=== PATIENT | male | born 1940 | race Caucasian/White ===

== ENCOUNTER 2020-03-20 09:32 | Outpatient (CLI) | payer OTHER, SELFPAY ==
--- NOTE | 2020-03-20 09:30 | USCV_ITS ---
Peter Royal Age: 79 Gender: M : 1940 Exam Date: 03/20/2020 09:52 Ordering Phys: Peewee Rivers MD ([email or web address]) Technologist: Ruchi Kendall [place] [facility] [place]: ventricular arrhythmia BP: 130 / 70 HR: 61 Rhythm: Sinus Technical Quality: Adequate MEASUREMENTS (Male / Female) Normal Values 2D ECHO LV Diastolic Diameter PLAX 4.9 cm 4.2 - 5.9 / 3.9 - 5.3 cm LV Systolic Diameter PLAX 3.8 cm LV Chamber Size 4.1 cm IVS Diastolic Thickness 1.6 cm 0.6 - 1.0 / 0.6 - 0.9 cm IVS Systolic Thickness 1.8 cm LVPW Diastolic Thickness 1.8 cm 0.6 - 1.0 / 0.6 - 0.9 cm LVPW Systolic Thickness 1.8 cm RV Chamber Size 4.4 cm LVOT Diameter 2.0 cm LV Ejection Fraction 2D Teich 44.8 % LV Ejection Fraction MOD 2C 35.9 % LV Ejection Fraction 2C AL 37.6 % LA Diameter 4.2 cm LA Width 3.2 cm LA Height 4.9 cm RA Width 3.1 cm RA Height 4.6 cm Aorta at Sinotubular Diameter 3.0 cm M-MODE LV Diastolic Diameter MM 6.5 cm 4.2 - 5.9 / 3.9 - 5.3 cm LV Systolic Diameter MM 4.6 cm LV Ejection Fraction MM Teich 54.8 % IVS Diastolic Thickness MM 1.0 cm 0.6 - 1.0 / 0.6 - 0.9 cm IVS Systolic Thickness MM 1.6 cm LVPW Diastolic Thickness MM 1.4 cm 0.6 - 1.0 / 0.6 - 0.9 cm LVPW Systolic Thickness MM 2.0 cm RV Diastolic Diameter MM 1.8 cm Aortic Annulus Diameter 4.1 cm LA Ao Ratio MM 1.0 MV E Point Septal Separation 0.6 cm DOPPLER AV Peak Velocity 163.7 cm/s LVOT Peak Velocity 85.7 cm/s AV Area Cont Eq vti 1.9 cm squared AV Area Cont Eq pk 1.6 cm squared MV Area PHT 4.0 cm squared Mitral E to A Ratio 1.0 MV E' Velocity 56.5 cm/s Mitral E to MV E' Ratio 12.1 Mitral E to LV E' Lateral Ratio 10.3 Mitral E to LV E' Septal Ratio 14.9 TR Peak Velocity 135.0 cm/s TR Peak Gradient 7.3 mmHg TR Mean Velocity 88.3 cm/s TR Mean Gradient 3.6 mmHg TR Velocity Time Integral 32.7 cm TV Peak E Velocity 59.0 cm/s Right Atrial Pressure 3.0 mmHg Pulmonary Artery Systolic Pressu 10.3 mmHg PV Peak Velocity 59.0 cm/s RV Acceleration Time 0.1 s RV Ejection Time 0.4 s RV AcT/ET 0.2 FINDINGS Left Ventricle Normal left ventricular size and systolic function, EF 59 %. No regional wall motion abnormalities. Right Ventricle Normal right ventricular size and systolic function. Right Atrium Normal right atrial size. Left Atrium Mildly increased left atrial size. Mitral Valve No gross abnormalities noted . Aortic Valve Thickened aortic valve. Aortic valve sclerosis. Tricuspid Valve No gross abnormalities noted Pulmonic Valve Pulmonic valve not well visualized. Pericardium No pericardial effusion. Aorta Normal aortic annulus size. CONCLUSIONS Normal left ventricular size and systolic function, EF 59 %. No regional wall motion abnormalities. Mildly increased left atrial size. Features of aortic valve sclerosis There is no pericardial effusion. There are no intracardiac masses. No previous study is available for comparison. Dr Peewee Rivers MD FACC (Electronically Signed) Final Date: 20 March 2020 20:57 S
== END 2020-03-20 09:33 | disposition home or self-care (01) ==
LOC: RAD 09:33
PROVIDERS: PCP Family Medicine; Visit Provider Internal Medicine Cardiovascular Disease
DX: I49.8 Other specified cardiac arrhythmias (principal)
CPT/HCPCS: 93306

== ENCOUNTER → 2020-03-28 17:38 | Outpatient (BNVA) | payer OTHER, SELFPAY | PROVIDERS: PCP Family Medicine; Visit Provider Dermatology | DX: D48.9 Neoplasm of uncertain behavior, unspecified (principal) | CPT/HCPCS: 88304 ==

== ENCOUNTER 2020-04-10 08:43 | Outpatient (CLI) | payer OTHER, SELFPAY ==
[2020-04-10 08:56] VITALS: BMI 32.1
--- NOTE | 2020-04-10 09:11 | NMCV_ITS ---
NM yadira perf SPECT r/s* [id number] Peter Royal Age: 79 Gender: M : 1940 Exam Date: 04/10/2020 09:56 Ordering Phys: Peewee Rivers MD ([email or web address]) Technologist: CECILIA Amaya Exam Location: [facility] Indications: Ventricular arrhythmia STRESS TEST Please see separate stress test report in [facility] for full findings IMAGE PROTOCOL Rest/Stress 1 Lexiscan Day Radiopharmaceutical Dose (mCi) Administration Site Administered by Rest: Tc-99m 10.8 IV CECILIA Constantino Sestamibi Stress:Tc-99m 32.6 IV CECILIA Amaya Sestamibi Rest: 10-Apr-2020 60 Discovery 630 Stress: 10-Apr-2020 45 Discovery 630 0.4mg Lexiscan. Images obtained in supine and prone position. SPECT RESULTS Technical Quality: Good Raw Data Analysis: Normal Image Corrections: No attenuation or motion correction applied Summed Stress Score: 9 Summed Rest Score: 5 Summed Difference Score: 4 PERFUSION FINDINGS Moderate area of moderately decreased tracer uptake were noted in the basal mid and apical inferior, basal and mid inferolateral and apical lateral regions. Some reversibility was noted in these regions FUNCTIONAL RESULTS (calculated via Gated SPECT) Stress Image LV EF (%): 53 Stress EDV (mL):165 TID: 1.08 Stress ESV (mL):77 FUNCTIONAL FINDINGS: Segmental wall motion analysis revealed mild hypokinesia of the anteroapical region IMPRESSIONS 1. Myocardial perfusion imaging revealing moderate area of moderately decreased tracer uptake in the inferior, inferolateral and apical regions with some reversibility, suggestive of myocardial scarring with some ischemia distribution of the right coronary artery predominantly. Very small area of ischemia was noted in the circumflex distribution as well 2. Normal LV ejection fraction 53%. 3. Wall motion normalities as mentioned above. 4. Mildly dilated LV cavity with an end-systolic volume of 77 ml No similar previous studies are available for comparison Dr Peewee Rivers MD FACC (Electronically Signed) Final Date: 10 April 2020 16:34 S
--- NOTE | 2020-04-10 09:11 | ECG_ITS ---
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 Interpretive Statements NAME OF STUDY: LEXISCAN SESTAMIBI STRESS TEST INDICATION: Chest Pain, PROCEDURE: At the baseline, the EKG revealed normal sinus rhythm with a frequent PVCs in the form of trigeminy. The baseline blood pressure was 151/86 mm Hg with a heart rate of 68 beats/min. Lexiscan was infused over a period of 20 seconds. A total of 0.4 milligrams of Lexiscan was infused. The stress phase was continued for a total of 5 minutes. Heart rate at the end of the stress phase was 80 with a blood pressure 160/89. The EKG at the peak infusion revealed no significant changes there was a 3 beat run of nonsustained tachycardia. Sestamibi was injected 20 seconds after the Lexiscan infusion. Blood pressure at the end of the recovery phase was 160/88 with a heart rate of 108 per minute. CONCLUSION: 1. No significant EKG changes with the LexiScan infusion 2. No LexiScan induced chest pain or cardiac arrhythmia 3. Normal blood pressure and heart rate response 4. Sestamibi/sestamibi perfusion scan pending; see separate report. Electronically Signed On 04-10-2020 19:09:51 AUCTION[employer]ER ART by Peewee Rivers M.D. [id number]
[2020-04-10 11:18] VITALS: BP 155/85; PULSE 85
[2020-04-10] MEDS: regadenoson 0.4 Mg/5 ml Syringe IVP (11:18)
== END 2020-04-10 08:44 | disposition home or self-care (01) ==
LOC: CDL 08:44
PROVIDERS: PCP Family Medicine; Visit Provider Internal Medicine Cardiovascular Disease
DX: R06.02 Shortness of breath (principal); I49.9 Cardiac arrhythmia, unspecified; R07.9 Chest pain, unspecified
CPT/HCPCS: 78452; 93017; A9500; J2785

== ENCOUNTER → 2020-04-26 12:56 | Outpatient (BNVA) | payer OTHER, SELFPAY | PROVIDERS: PCP Family Medicine; Visit Provider Internal Medicine Cardiovascular Disease | DX: Z20.828 Contact with and (suspected) exposure to other viral communicable diseases (principal); Z01.812 Encounter for preprocedural laboratory examination | CPT/HCPCS: 87635 ==

== ENCOUNTER 2020-04-30 15:50 | Observation (INO) | payer OTHER, SELFPAY ==
[2020-04-29 09:57] VITALS: BMI 32.1
[2020-04-30] VITALS (30 sets, daily range): BP systolic 114–158; BP diastolic 58–96; PULSE 48–87; RESP 12–97; TEMP 36.3–36.8; O2SAT 90–97
[2020-04-30 05:51] LABS: Basophils # 0.1 10^3/uL (0.0-0.1); Basophils % 1.5 %; Eosinophils # 0.5 10^3/uL (0.0-0.8); Eosinophils % 8.3 %; Hematocrit 53.6 % (42.0-52.0); Lymphocytes # 3.1 10^3/uL (0.8-4.8); Lymphocytes % 47.1 %; Mean Corpuscular HGB Conc 33.6 g/dL (30.0-36.0); Mean Corpuscular Volume 98.2 fL (80-94); Monocytes # 0.7 10^3/uL (0.2-0.9); Monocytes % 11.2 %; Neutrophils # 2.06 10^3/uL (1.8-7.7); Neutrophils % 31.7 %; Nucleated Red Blood Cells % 0 %; Platelet Count 145 10^3/cmm (130-400); Red Blood Count 5.46 10^6/uL (4.1-5.3); Red Cell Distribution Width 14.1 % (12.1-15.1); White Blood Count 6.5 10^3/uL (4.0-10.0)
[2020-04-30 06:00] LABS: INR 0.96 (0.8-1.2)
[2020-04-30 06:06] LABS: Anion Gap 13.4 (5-19); Blood Urea Nitrogen 19 mg/dL (8-23); Calcium 9.6 mg/dL (8.5-10.5); Carbon Dioxide 30 mmol/L (22-29); Chloride 100 mmol/L (98-107); Glucose 116 mg/dL (65-115); Osmolality Calculated 291 mOsm/kg (285-295); Potassium 4.4 mmol/L (3.5-5.1); Sodium 139 mmol/L (136-145)
--- NOTE | 2020-04-30 07:00 | XACV_ITS ---
Exam Room: 1 Ht: 180 cm Wt: 104 kg BSA: 2.32 m2 Gender: Male : 1940 Exam Priority: Routine Procedure(s): Procedure Description: Diagnostic procedure Procedure Description: PCI procedure Procedure Description: Left Heart Catheterization Procedure Description: Left ventriculography Procedure Description: PTCA Procedure Description: Miscellaneous Procedure Description: ACT Procedure Description: Coronary Angiography Diagnostic Cath Status: Elective Diagnostic Findings * Them left main is a medium caliber vessel which was found to have around 30% narrowing in the distal segment. Moderate calcification was noted in this vessel. * The left anterior descending artery is a medium caliber vessel which appears to wrap around the LV apex minimally. The proximal and mid segment of the artery was found to have moderate diffuse coronary calcification. There was a 60 to 70% eccentric narrowing in the proximal segment of the artery. The mid segment of the artery was found to be diffusely diseased with lesions ranging anywhere from 40 to 50%. The distal artery was found to have mild diffuse disease. First diagonal branch was found to have around 40 to 50% tubular narrowing proximally. * Circumflex artery is a medium caliber vessel which was found to have mild diffuse calcification in the proximal segment. Relatively large first obtuse marginal branch was found to have 30 to 40% diffuse irregular narrowing. The circumflex proper also was found to have 20 to 30% diffuse irregular narrowing. No other significant stenotic lesions were noted. * The right coronary artery is a medium caliber dominant vessel which was found to have mild diffuse disease in the proximal and mid segment. Just before the terminal bifurcation, the artery was found to have around 95% eccentric narrowing. The PLV branch of the artery was found to be totally occluded proximally. The PDA branch was found to have an ostial around 98% lesion. The mid and distal segment of the PDA branch was found to have mild diffuse disease. * Coronary angiography shows right dominance. PCI Status: Elective PCI Indication: New Onset Angina <= 2 months Interventional Findings * Unsuccessful RCA intervention. AL 0.75 catheter was used to engage RCA. Distal RCA lesion at the bifurcation of chronically occluded PLB and PDA was heavily calcified. Despite of trying different techniques we were not able to cross the lesion therefore it was thought either to manage medically or if patient remains symptomatic CLEANING PORTER technique will be the appropriate.. * FFR: After equalizing the distal and proximal pressure of FFR wire proximal to the lesion, proximal LAD lesion was crossed with FFR wire. IV adenosine at rate of 140 mcg/min was started. Patient did not compliant of any symptoms, at then end of two minutes FFR was recorded as 0.76, which is significant . * Right groin approach was adopted to engage left main due to tortuosity of the vessel. XB 3.5 catheter was used to engage left main. We were able to cross across the lesion with cougar wire, multiple balloon angioplasties with AB TREK 2.5 x 25 mm balloon was performed. Despite of our effort using 2 wire technique for billing purposes, guide liner and multiple balloon angioplasties we were not able to cross the proximal LAD with a stent. We reached higher dose of contrast therefore we stopped the procedure, MIMA-3 flow with reasonable good angiographic result was a separate, we will refer patient for rotablation/atherectomy of the proximal LAD for highly calcified lesion. [facility] Dr. Joshi will be sent the referral.. Conclusions 1. Normal left ventricular systolic function. Ejection fraction of 50%. 2. 79-year-old white male with history of essential benign hypertension and gouty arthritis, presented with of palpitation and some dyspnea on exertion. He was found to have frequent ventricular arrhythmias on the EKG. Subsequent myocardial perfusion imaging revealed moderate area of reversible and reversible defect in the distribution of the right coronary artery predominantly. There was small areas of reversible defect in the distribution of the left circumflex artery as well. In view of the patient's presenting symptoms and the abnormal objective findings, in order to further evaluate his coronary status, a cardiac catheterization was recommended. Patient underwent left heart catheterization with left and right coronary angiogram and LV angiogram today. The findings are as follows. 3. Mild disease in the left main. Left anterior descending artery was found to have 60 to 70% eccentric narrowing proximally. Mild to moderate diffuse disease in the midsegment. Right coronary artery was found to have total occlusion of the PLV branch. High-grade lesions in the distal RCA and ostium of the PDA branch. Mild diffuse disease in the other vessels. Mild to moderate diffuse coronary calcification was noted in the proximal segments of all the 3 arteries. LV gram revealed hypokinesia of the basal inferior and apical inferior wall segments. Overall ejection fraction around 50%. LVEDP of 19 mmHg. 4. Based on the above angiographic findings, it was thought to be appropriate to consider PCI of the RCA lesions. Also may consider FFR of the LAD lesion. I discussed and reviewed the cardiac catheterization data with the Dr. Leonardo. Dr. Leonardo agreed with this plan and took over further management of this patient at this point. Recommendations * Continue current medical management and risk factor modification. Refer patient for atherectomy/rotablation of proximal LAD due to highly calcified lesion. Interventional RX Recommendation: PCI w/o planned CABG Diagnostic RX Recommendation: PCI w/o planned CABG Ventriculography Ejection Fraction: 50.0 % LV EDP: 19 mmHg Left Ventriculography Findings: * The LV gram was performed the MCLEOD position. LV cavity appears of normal size. There was a moderate hypokinesia of the basal inferior and mild hypokinesia of the apical inferior wall segments. No filling defects were noted. No significant mitral valve prolapse or mitral regurgitation. Pressures Phase:Rest AO : 141 / 43 ( 99 ) @ 1:30:00 AM 124 / 57 ( 91 ) @ 1:31:00 AM 130 / 57 ( 94 ) @ 1:33:00 AM 115 / 73 ( 94 ) @ 1:42:00 AM 143 / 69 ( 101 ) @ 1:49:00 AM 142 / 62 ( 100 ) @ 1:49:00 AM 169 / 69 ( 103 ) @ 1:56:00 AM 154 / 62 ( 102 ) @ 2:19:00 AM 150 / 67 ( 98 ) @ 2:27:00 AM 144 / 78 ( 105 ) @ 3:16:00 AM 143 / 80 ( 104 ) @ 3:24:00 AM 136 / 70 ( 100 ) @ 4:10:00 AM 102 / 56 ( 76 ) @ 4:38:00 AM 136 / 74 ( 96 ) @ 4:53:00 AM LV : 141 / -2 / @ 1:30:00 AM 140 / 9 / @ 1:47:00 AM 140 / 8 / @ 1:49:00 AM 138 / 9 / @ 1:49:00 AM Valves Phase:DefaultPhase AV : 0.0 @ 11:25:05 AM AV Mean Gradient: 0.0 @ 11:25:05 AM Clinical Evaluation EBL: 5mL-10mL Procedural Details Procedure Consent Obtained. Current Diagnosis : Chest Pain. Pre-Procedure Time Out. Identified patient by full name and date of as verbalized by the patient/guarantor. Does the consent match the physician's order: Yes. Accurate & Complete Informed Consent: Yes. Inpatient/Outpatient History & Physical on Chart: Yes. If H&P is completed, is and addenduem needed: Yes; If yes, is the addendum complete: Yes. Visualize and Verify Site with Patient/Guarantor: N/A. Relevant Radiology Images available: Yes. Pre-op teaching completed and patient verbalized understanding. The risks, benefits, and alternatives of sedation and/or procedure were discussed by physician. The patient agrees to continue. Procedure started. [facility] [place] Clinical Fraility Score: 3: Managing Well. Socket Puller Indications: Suspected CAD. Chest Pain Symptom Assessment: Typical Angina Symptoms. Correct patient, site and procedure confirmed by cath team. Current diagnosis: Chest Pain. PERRLA. Strong, equal hand production director bilaterally. Lungs clear x 5 lobes. IV Site on Arrival: 18 gauge in the left anticubital. IV Fluids: 0.9% NaCl at KVO. 0 mL infused prior to poultry farm laborer. Pre Procedural Pulses: right dorsalis pedis was 2+. Pre Procedural Pulses: left dorsalis pedis was 3+. Pre Procedural Pulses: right posterior tibial was 2+. Pre Procedural Pulses: left posterior tibial was 3+. Pre Procedural Pulses: bilateral radial was 3+. Oxygen started at 2liters/min via nasal canula. right groin was prepped with chloroprep then draped in the usual sterile fashion. right radial was prepped with chloroprep then draped in the usual sterile fashion. Baseline sample Acquired. HR: 64 BPM. Physician arrived. Physician scrubbed in. Patient's family unavailable. Immediate Pre-Procedure Time Out. Correct Patient: Yes; Correct Procedure: Yes; Correct Site: Yes; Correct Patient Position: Yes; Correct Supplies: Yes; Dried Flammable Prep: Yes; Blood Products Available: N/A;. Lidocaine 1% infiltrated to the right radial. Arterial access obtained. A 5 bulgarian Marc catheter in over wire. EDP Sample taken: LV 141/-3,18; HR: 73 BPM; SpO2: 94%. Pullback taken: LV Off; AO Off; Mean: , Peak to Peak: , SEP: ; HR: 79 BPM; SpO2: 94%. Multiple views taken of left coronary artery. Catheter redirected to the RCA. Catheter removed over the exchange wire. A 5 bulgarian JR4 catheter in over wire. Dr. Leonardo called to review films. Multiple views taken of right coronary artery. Catheter removed over the exchange wire. A 5 bulgarian Angled Pig catheter in over wire. EDP Sample taken: LV 140/9,26; HR: 69 BPM; SpO2: 95%. LV gram performed in MCLEOD @ 10 mL/second for a total of 30 mL. EDP Sample taken: LV 138/9,27; HR: 78 BPM; SpO2: 95%. Pullback taken: LV 140/8,27; AO 143/69(101); Mean: 0mmHg, Peak to Peak: 0mmHg, SEP: 22sec/min; HR: 68 BPM; SpO2: 95%. Catheter removed over the exchange wire. Dr. Rivers scrubbed out. Side port of sheath attached to Normal Saline flush at KVO to maintain patency. Dr. Leonardo arrived. Dr. Leonardo scrubbed in to perform intervention. Patient's family updated by Dr. Rivers via phone. 6 bulgarian AL 0.75 SH guide catheter was inserted over the wire. Dacono guidewire was advanced through the guide catheter to lesion in the PLV. Balloon inserted to lesion in the PLV. Balloon out. Wire out. Runthrough guidewire was advanced through the guide catheter to lesion in the PLV. Balloon inserted to lesion in the PLV. Balloon and wire out. Angioraphy performed. Guide catheter removed over the wire. 6 bulgarian XB 3.5 guide catheter was inserted over the wire. FFR guidewire was advanced through the guide catheter to lesion in the prox LAD. An FFR value of 0.76 was obtained for a lesion located at Prox LAD. Fractional flow reserve measurements obtained. Wire out. Dacono guidewire was advanced through the guide catheter to lesion in the prox LAD. Wire out. Runthrough guidewire was advanced through the guide catheter to lesion in the prox LAD. ACT drawn. Results 228 seconds. Therapeutic limits - pre-heparin administration 90-150 seconds and monitoring heparin during a vascular procedure >250 seconds. Due to lack of guide support the radial access site is being aborted and switching to the femoral artery. Dr. Rivers called and arrived to review films with Dr. Leonardo. Dr. Crowder called for a CABG consult. Lidocaine 1% infiltrated to the right groin. A TR Band was successful obtaining hemostatsis at the Right Radial artery insertion site. Family updated. Lidocaine 1% infiltrated to the right groin. Arterial access obtained with micropuncture set. 6 bulgarian XB 3.5 SH guide catheter was inserted over the exchange wire. Sheath injected in Right common femoral artery. Inventory is Navilyst STANDARD J GUIDEWIRE .035 145cm. Inventory is TR Glidewire Angled Stiff Shaft .035 260cm. 6 bulgarian XB 3.5 SH guide catheter was inserted over the glidewire. ACT drawn. Results 202 seconds. Therapeutic limits - pre-heparin administration 90-150 seconds and monitoring heparin during a vascular procedure >250 seconds. Guide catheter out. Sheath upsized to a 6 Fr. 6 bulgarian XB 3.5 SH guide catheter was inserted over the glidewire. Guide catheter out. 6 bulgarian JL 4 guide catheter was inserted over the glidewire. Dacono wire inserted. Wire seated in the diagonal. Guideliner inserted. Dacono wire # 2 inserted and advanced down the LAD. Dacono wire parked in the distal LAD. Inflation number : 1 A AB TREK 2.50X25 RX BALLOON was prepped and advanced across the Prox LAD , then inflated to 20 PAT for 0:14 seconds. Balloon out over the wire. MDT R MARLON 3.0x34 GEM stent inserted over wire. Unable to cross lesion. Intact stent removed over wire. Inflation number: 2 The AB TREK 2.50X25 RX BALLOON was reinflated across the Prox LAD, to 0 PAT for 0:13 seconds. Balloon out. Dacono wire out of LAD. Runthrough guidewire was advanced through the guide catheter to lesion in the prox LAD. Dacono wire in Diagonal out. MDT R MARLON 3.0x34 GEM stent inserted over wire. Unable to cross lesion. Intact stent removed over wire. Guideliner and wire out. Guide catheter out. Inventory is CRD 6FR XB 3 GUIDE. 6 bulgarian XB 3 guide catheter was inserted over the wire. BMW guidewire was advanced through the guide catheter to lesion in the prox LAD. Inventory is CRD 6FR AL 1 GUIDE. 6 bulgarian AL I guide catheter was inserted over the wire. Guide catheter out. Inventory is CRD 6 FR XB 3.5 GUIDE. 6 bulgarian XB 3.5 guide catheter was inserted over the wire. Guide catheter out. A 5 bulgarian JL4 catheter in over wire. Catheter out. Aggrastat stopped. Long 45 cm 6 fr sheath exchanged for short 8 fr sheath. Physician scrubbed out. A Suture was successful obtaining hemostatsis at the Right Femoral artery insertion site. Sheath(s) sutured into position with 2-0 silk and sterile 4x4's and Op-site applied over the site. No oozing or signs and symptoms of hematoma noted. Arterial sheath flushed and connected to tranducer and pressure bag with heparinized saline. Post Procedure: Pulses reassessed and unchanged. PERRLA. Strong, equal hand production director bilaterally. No VTE prophylaxis required. Medication's Wasted: Nitro = 49.8 mg. Medication's Wasted: Heparin = 1000 units. Medication's Wasted: Other = adenosine 60 mg. Medication's Wasted: Other = versed 1 mg. Medication's Wasted: Other = fentanyl 50 mcg. Total IV fluids: 325 mL. Contrast type used: Omnipaque 300 mgI/mL, 500 mL bottle. Complications: none. Estimated blood loss: 5mL-10mL. Procedure completed. Patient transferred by stretcher to CPRU. Access Site Site: Right Radial artery Sheath Size: 6 Fr Hemostasis Method: TR Band Hemostasis Success: Successful Site: Right Femoral artery Sheath Size: 6 Fr Hemostasis Method: Suture Hemostasis Success: Successful Procedure Medications Start: 7:11 AM Stop: 7:11 AM Medication: Benadryl Amount: 50 mg Route: I.V. Start: 7:11 AM Stop: 7:11 AM Medication: Versed Amount: 1 mg Route: I.V. Start: 7:11 AM Stop: 7:11 AM Medication: Fentanyl Amount: 50 mcg Route: I.V. Start: 7:21 AM Stop: 7:21 AM Medication: Verapamil Amount: 5 mg Route: I.A. Start: 7:21 AM Stop: 7:21 AM Medication: Nitrogylcerin Amount: 200 mcg Route: I.A. Start: 7:33 AM Stop: 7:33 AM Medication: Versed Amount: 1 mg Route: I.V. Start: 7:21 AM Stop: 7:21 AM Medication: Heparin Amount: 5000 units Route: I.V. Start: 9:02 AM Stop: 9:02 AM Medication: Heparin Amount: 3000 units Route: I.V. Start: 9:17 AM Stop: 9:17 AM Medication: Fentanyl Amount: 50 mcg Route: I.V. Start: 9:18 AM Stop: 9:18 AM Medication: Heparin Amount: 2000 units Route: I.V. Start: 10:08 AM Stop: 10:08 AM Medication: Versed Amount: 1 mg Route: I.V. Start: 10:38 AM Stop: 10:38 AM Medication: Heparin Amount: 3000 units Route: I.V. Start: 10:40 AM Stop: 10:40 AM Medication: Versed Amount: 1 mg Route: I.V. Start: 10:42 AM Stop: 10:42 AM Medication: Aggrastat 12.5 mg/250 mL Amount: 52 ml Route: I.V. bolus Start: 10:42 AM Stop: 10:42 AM Medication: Aggrastat 12.5 mg/250 mL Amount: 18.7 ml/hr Route: I.V. drip Start: 10:49 AM Stop: 10:49 AM Medication: Fentanyl Amount: 50 mcg Route: I.V. Start: 11:22 AM Stop: 11:22 AM Medication: Plavix Amount: 300 mg Route: P.O. I, the attending physician, have reviewed and verified all procedure medications. Yes, all medications given per verbal order History/Risk Factors Hypertension: Yes Dyslipidemia: No Peripheral Arterial Disease (PAD): No Myocardial Infarction (NC): No Obesity: No Tobacco Use: Current/Recent(w/in 1 year) Prior Interventions PCI: No CABG: No Valve Surgery: No Report Signatures Interventional Workflow Finalized by Garett Leonardo MD on 05/08/2020 07:01 PM Diagnostic Workflow Finalized by Dr Peewee Rivers MD [facility] on 04/30/2020 06:04 PM
--- NOTE | 2020-04-30 07:04 | W.PM.OPSUD ---
Surgery/Procedure H&P Update DATE OF PROCEDURE: April 30, 2020 DATE H&P PERFORMED: 04/30/20 H&P UPDATE INFORMATION: I have reviewed H&P completed within last 30 days, I have examined patient prior to procedure and No changes to prior documentation PREOP DIAGNOSIS: Abnormal stress test/ASHD PLANNED PROCEDURE: Operation Date: 04/30/20 07:00 Proposed Procedures p Left Cardiac Catheterization 79554 R94.39(Left) - Peewee Rivers MD PATIENT REASSESSED PRIOR TO SEDATION, WITH NO CHANGE NOTED: Yes PHYSICAL EXAM: alert, oriented x 3, clear to auscultation bilaterally and regular rate & rhythm AIRWAY EVAL/ANESTHESIA PLAN: normal airway, see other exam findings, ASA II, Monitored Anesthesia, Local Anesthesia, Risks, benefits & alternatives of sedation and/or procedure discussed and Patient agrees to continue as planned
--- NOTE | 2020-04-30 07:05 | P.HP_ITS ---
Providers/Chief Complaint Primary Care Provider: Maris Marcano MD Chief Complaint: Left Cardiac Catheterization History of Present Illness Peter Royal is a 79 year old male with a history of high blood pressure and gouty arthritis, presented with increasing palpitations. He was found to have frequent ventricular arrhythmias on the monitor. Subsequent myocardial perfusion imaging revealed areas of fixed and reversible defect mostly in the distribution of the right coronary artery. He was started on beta-blockers. He continued to have the symptom of palpitations and frequent PVCs. He also was was having some shortness of breath with activities. In view of his ongoing symptoms and the abnormal myocardial perfusion imaging, in order to further evaluate his coronary status, a cardiac catheterization was recommended. Review of Systems Narrative: CONSTITUTIONAL: No fever or chills. EYES: No blurring of vision or other visual disturbances lately. ENT: No hoarseness of voice, auditory disturbances or sore throat. CARDIOVASCULAR: As mentioned above. RESPIRATORY: No significant cough. GASTROINTESTINAL: No hematemesis or melena. GENITOURINARY: No dysuria or hematuria. INTEGUMENTARY: No skin rashes or history of skin cancer. NEURO: No transient ischemic attacks or amaurosis. PSYCHIATRIC: No history of psychosis or major depression. HEMATOLOGIC: No bleeding disorders or significant anemia. ENDOCRINE: No history of polyuria or polydipsia. MUSCULOSKELETAL: History of gouty arthritis for the last more than 40 years. ALLERGY/IMMUNOLOGY: As mentioned above. Medications/Allergies Home Medications Medication Instructions Recorded Confirmed Last Taken Type allopurinol 300 mg tablet 300 mg PO DAILY 02/21/20 04/30/20 04/29/20 17:00 History carvedilol 6.25 mg tablet 6.25 mg PO BID 30 Days #60 tab 02/21/20 04/30/20 04/29/20 22:00 Rx lisinopril 40 mg tablet 40 mg PO DAILY 02/21/20 04/30/20 04/29/20 14:00 History aspirin 325 mg PO DAILY 30 Days #30 tab 05/01/20 Unknown Rx clopidogrel 75 mg PO DAILY 30 Days #30 tab 05/01/20 Unknown Rx nitroglycerin 0.4 mg SUBLINGUAL Q5M PRN 30 Days 05/01/20 Unknown Rx #5 tab rosuvastatin [Crestor] 20 mg PO DAILY 30 Days #30 tab 05/01/20 Unknown Rx Allergies Allergy/AdvReac Type Severity Reaction Status Date / Time No Known Allergies Allergy Verified 03/28/20 16:04 PFSH Acute PFSH: Medical History (Updated 04/30/20 @ 07:08 by Peewee Rivers MD) Abnormal cardiovascular stress test Benign essential hypertension with target blood pressure below 140/90 Erectile dysfunction Gout H/O cardiac arrhythmia Hearing loss History of nonmelanoma skin cancer Hypertension Skin neoplasm Ventricular arrhythmia Surgical History History of hernia surgery Family History Other Cancer Diabetes Hypertension Stroke Denies family history of Hyperlipidemia Social History Smoking and tobacco status: light tobacco smoker smokeless tobacco Alcohol intake: never Vitals/I&O/Wt Last Vital Signs Temp 97.3 F L 04/30/20 05:55 Pulse 55 L 04/30/20 05:55 Resp 18 04/30/20 05:55 BP 158/96 04/30/20 05:55 Pulse Ox 97 04/30/20 05:55 Weight last 48 hrs Weight 230 lb Physical Exam Narrative: EXAM NARRATIVE: GENERAL: The patient is alert and oriented times three. Not in any acute distress. HEENT: No significant pallor, icterus or lymphadenopathy.Oral cavity: There are no mucous membrane lesions. NECK: Trachea appears to be central. No masses noted. No JVD or thyromegaly appreciated. RESPIRATORY: Chest is symmetrical. No intercostals muscle retraction or any accessory muscle activation. There is no chest wall tenderness. Breath sounds are heard bilaterally. No rales or rhonchi heard. No evidence of any consolidation. BREASTS: Deferred. HEART: The heart sounds are normal. No S3 or S4. Short systolic murmur the left sternal border. No diastolic murmurs. No pericardial rub ABDOMEN: No vessel pulsations or distention. No tenderness. No organomegaly appreciated. Bowel sounds are normally heard. : Deferred. RECTAL: Deferred. LYMPHATIC: No lymphadenopathy noted in the neck or groin. EXTREMITIES: No edema or cyanosis. No clubbing. Peripheral pulses are palpated in fairly good volume and amplitude MUSCULOSKELETAL: No acute joint deformities or swelling SKIN: There are no significant rashes or ecchymosis NEUROPSYCHIATRIC: The patient is alert and oriented x3. Appears to be in a good mood. No tremors or rigidity noted. Data : 05/01/20 08:59 05/01/20 08:59 A&P Assessment and plan (1) Abnormal cardiovascular stress test: In view of the patient is a frequent nuclear arrhythmia, exertional dyspnea and the abnormal myocardial perfusion imaging, in order to further evaluate his coronary status, a cardiac catheterization would be appropriate. The risk of bleeding, hematoma, vascular injury, myocardial infarction, CVA, renal failure and other concomitant complications were explained in detail. Patient understood this well and consented to proceed. Status: Acute (2) Benign essential hypertension with target blood pressure below 140/90: The blood pressure is currently of stage II. We may optimize antihypertensive medications. Status: Acute (3) Ventricular arrhythmia: May continue on the current medication for the time being. After reviewing the cardiac catheterization data, further medication adjustments will be made. Status: Acute Additional A&P Information Based on the results of the cardiac catheterization and patient's clinical progress, further management decisions will be made. Attestations Medical Necessity Statement*: Patient may require overnight l stay for close monitoring and further management Coding Level of Care Code Acute Test Desk Trouble Locator for [facility] Fwd Diagnoses Abnormal cardiovascular stress test R94.39 Benign essential hypertension with target blood pressure below 140/90 I10 Ventricular arrhythmia I49.9
[2020-04-30] MEDS: aspirin 81 mg Chew Tablet 324 MG PO (07:10)
--- NOTE | 2020-04-30 11:45 | PC.NURSE ---
recovery received pt from [facility] chief [facility] with POBA to Prox LAD. tr band in place on right wrist with radial pulse palpable. 6F/8F sheath in place with pressure bag intact. slight hematoma aprox 5 sm noted above right groin access. right pt and dp pulses palpable. pt placed on monitoring coordinator and vital signs obtained. verbal instructions on restrictions to right arm and right leg. pt verbalized understanding.
--- NOTE | 2020-04-30 12:30 | PC.NURSE ---
tr band 3ml air from tr band on right wrist. no signs of bleeding. will continue to release air according to policy. again pt educated on restriction of movement of right leg and pressure to right wrist. pt acknowledged understanding.
--- NOTE | 2020-04-30 12:58 | PC.NURSE ---
lunch pt able to eat 100% lunch with no complications.
--- NOTE | 2020-04-30 13:44 | PC.NURSE ---
act result act ran from sheath. result [id number]. awaiting doctors orders.
--- NOTE | 2020-04-30 15:28 | PC.NURSE ---
sheath pull sheath pulled and held pressure. dr bellamy came over to consult on hold after 15 mins. suggested to hold pressure for 20 minutes and then at 50% for another 10 minutes. distal pulses palpable.
[2020-04-30] MEDS: HYDROcodone-acetaminophen 5-325 mg Tablet 1 TAB PO (16:53)
--- NOTE | 2020-04-30 16:54 | PC.NURSE ---
patient received from [facility] via stretcher. slide board was used to transfer patient to bed. right groin site was observed and felt with [facility] staff. hematoma site was marked. dr bellamy aware of hematoma. right wrist site observed no hematoma noted. patient is able to get up at 2110. admission and physical assessment performed by [facility] prior to coming to [facility].
[2020-04-30] MEDS: carvedilol 6.25 mg Tablet PO (17:20)
--- NOTE | 2020-04-30 22:51 | PC.NURSE ---
NURSING NOTE: POST CARDIAC CATH. RIGHT GROIN CATH SITE CLEAN AND DRY WITH OCCLUSIVE DRESSING IN PLACE/BRUISING TO SITE/SOFT TO PALP. AWARE OF SITE APPEARANCE AND WAS IN TO CHECK ON PATIENT AT BEGINNING OF SHIFT: NO NEW ORDERS AT THIS TIME. NO DRAINAGE OR OOZING AT SITE. PT UP TO WALK AT 5 AND WAS ABLE TO WALK TO END OF ORDOÑEZ AND BACK WITH NO DIFFICULLTY. DENIES PAIN AT THIS TIME. CURRENTLY RESTING IN BED WITH EYES CLOSED. RESP EVEN AND NON LABORED. ALL VS AND ASSESSMENTS CHARTED. NO DISTRESS NOTED.
[2020-05-01 03:28] VITALS: BP 129/73; PULSE 82; RESP 20; TEMP 36.8; O2SAT 92
--- NOTE | 2020-05-01 04:41 | PC.NURSE ---
NURSING NOTE: SHIFT SUMMARY: PT ALERT AND ORIENTED X4. MOVES ALL EXTREMITIES AND FOLLOWS COMMANDS. RT GROIN CATH SITE, COVERED WITH 2X2 GUAZE AND OCCLUSIVE DRESSING REMAINS CLEAN, DRY, AND INTACT. NO DRAINAGE NOTED. CURRENTLY RESTING WITH EYES CLOSED; RESP EVEN AND NON LABORED. NO DISTRESS NOTED AT THIS TIME. ALL VS AND ASSESSMENTS CHARTED.
[2020-05-01 07:04] VITALS: BP 127/64; PULSE 75; RESP 21; TEMP 36.6; O2SAT 91
[2020-05-01] MEDS: allopurinol 300 mg Tablet PO (09:04)
[2020-05-01] MEDS: aspirin 325 mg EC Tablet PO (09:04)
[2020-05-01] MEDS: carvedilol 6.25 mg Tablet PO (09:04)
[2020-05-01] MEDS: lisinopril 20 mg Tablet 40 MG PO (09:04)
[2020-05-01] MEDS: clopidogrel 75 mg Tablet PO (09:04)
[2020-05-01 09:29] LABS: Basophils # 0.1 10^3/uL (0.0-0.1); Basophils % 0.7 %; Eosinophils # 0.2 10^3/uL (0.0-0.8); Eosinophils % 2.8 %; Hematocrit 43.5 % (42.0-52.0); Hemoglobin 15.3 g/dL (11.7-16.6); Lymphocytes # 1.5 10^3/uL (0.8-4.8); Lymphocytes % 20.4 %; Mean Corpuscular HGB Conc 35.2 g/dL (30.0-36.0); Mean Corpuscular Hemoglobin 33.2 pg (28.0-34.0); Mean Corpuscular Volume 94.4 fL (80-94); Mean Platelet Volume 9.6 fL (7.4-10.4); Monocytes # 0.7 10^3/uL (0.2-0.9); Monocytes % 9.1 %; Neutrophils # 4.74 10^3/uL (1.8-7.7); Neutrophils % 66.7 %; Nucleated Red Blood Cells % 0 %; Platelet Count 128 10^3/cmm (130-400); Red Blood Count 4.61 10^6/uL (4.1-5.3); Red Cell Distribution Width 13.8 % (12.1-15.1); White Blood Count 7.1 10^3/uL (4.0-10.0)
[2020-05-01 09:44] LABS: Anion Gap 15.1 (5-19); Blood Urea Nitrogen 18 mg/dL (8-23); Calcium 9.2 mg/dL (8.5-10.5); Carbon Dioxide 25 mmol/L (22-29); Chloride 100 mmol/L (98-107); Glucose 205 mg/dL (65-115); Osmolality Calculated 290 mOsm/kg (285-295); Potassium 4.1 mmol/L (3.5-5.1); Sodium 136 mmol/L (136-145)
[2020-05-01 10:59] VITALS: BP 109/54; PULSE 73; RESP 21; TEMP 36.4; O2SAT 94
--- NOTE | 2020-05-01 12:58 | P.PN_ITS ---
Subjective Subjective: Interval history: The patient was admitted to the hospital yesterday after the cardiac of the decision and attempted PCI. Patient was found to have critical lesions in the distal RCA and a severe lesion in the proximal LAD. PCI was attempted in the RCA which was unsuccessful. LAD lesion was attempted and a balloon angioplasty was performed in the proximal area. However Dr. Leonardo could not advance the stent. Because of the heavy calcification, he may require rotablation or other measures. He was admitted to hospital for observation. He remained stable throughout the hospital course. No chest pain or shortness of breath. No hematoma or bleeding from the groin. He has some ecchymosis in the right groin. Medications: Reviewed: Yes Medication Review Details: Current Medications Acetaminophen (Acetaminophen 325 Mg Tablet) 650 mg PO Q6H PRN PRN Reason: MILD PAIN Hydrocodone Bitart/Acetaminophen (Hydrocodone-Acetaminophen 5-325 Mg Tablet) 1 tab PO Q4H PRN PRN Reason: PAIN Last Admin: 04/30/20 16:53 Dose: 1 tab Documented by: Al Hydrox/Mg Hydrox/Simethicone (Agmr-Clc-Uincalieh-Silver 30 Ml Udc) 30 ml PO Q15M PRN PRN Reason: INDIGESTION Allopurinol (Allopurinol 300 Mg Tablet) 300 mg PO DAILY [facility] Last Admin: 05/01/20 09:04 Dose: 300 mg Documented by: Alprazolam (Alprazolam 0.25 Mg Tablet) 0.25 mg PO TID PRN PRN Reason: ANXIETY Aspirin (Aspirin 325 Mg Ec Tablet) 325 mg PO DAILY [facility] Last Admin: 05/01/20 09:04 Dose: 325 mg Documented by: Atropine Sulfate (Atropine 1 Mg/Ml Sdv 1 Ml) 0.5 mg IVP PRN PRN PRN Reason: Symptomatic bradycardia Carvedilol (Carvedilol 6.25 Mg Tablet) 6.25 mg PO BID [facility] Last Admin: 05/01/20 09:04 Dose: 6.25 mg Documented by: Clopidogrel Bisulfate (Clopidogrel 75 Mg Tablet) 75 mg PO DAILY [facility] Last Admin: 05/01/20 09:04 Dose: 75 mg Documented by: Fentanyl (Fentanyl 50 Mcg/Ml Inj 2ml) 50 mcg IVP PRN PRN PRN Reason: Prior to sheath removal Sodium Chloride (Sodium Chloride 0.9%) 1,000 mls @ 100 mls/hr IV .Q10H [facility] Last Admin: 05/01/20 09:02 Dose: Not Given Documented by: Lisinopril (Lisinopril 20 Mg Tablet) 40 mg PO DAILY [facility] Last Admin: 05/01/20 09:04 Dose: 40 mg Documented by: Magnesium Hydroxide (Magnesium Hydroxide 30 Ml Udc) 30 ml PO DAILY PRN PRN Reason: CONSTIPATION Naloxone HCl (Naloxone 0.4 Mg/Ml Sdv) 0.1 mg IVP Q2M PRN PRN Reason: RESPIRATORY RATE < 8/MIN Nitroglycerin (Nitroglycerin 0.4 Mg Sublingual Tablet) 0.4 mg SUBLINGUAL Q5M PRN PRN Reason: CHEST PAIN Temazepam (Temazepam 15 Mg Capsule) 15 mg PO BEDTIME PRN PRN Reason: INSOMNIA Vitals/I&O/Wt Last Vital Signs Temp 97.6 F 05/01/20 10:59 Pulse 73 05/01/20 10:59 Resp 21 H 05/01/20 10:59 BP 109/54 05/01/20 10:59 Pulse Ox 94 05/01/20 10:59 04/30/20 05/01/20 05/01/20 22:59 06:59 14:59 Intake Total 360 / 360 150 / 510 600 / 600 Output Total 450 / 800 Balance -90 / -440 150 / -290 600 / 600 Physical Exam Narrative: EXAM NARRATIVE: GENERAL: The patient is alert and oriented times three. Not in any acute distress. HEENT: No significant pallor, icterus or lymphadenopathy.Oral cavity: There are no mucous membrane lesions. NECK: Trachea appears to be central. No masses noted. No JVD or thyromegaly appreciated. RESPIRATORY: Chest is symmetrical. No intercostals muscle retraction or any accessory muscle activation. There is no chest wall tenderness. Breath sounds are heard bilaterally. No rales or rhonchi heard. No evidence of any consolidation. BREASTS: Deferred. HEART: The heart sounds are normal. No S3 or S4. Short systolic murmur the left sternal border. No diastolic murmurs. No pericardial rub ABDOMEN: No vessel pulsations or distention. No tenderness. No organomegaly appreciated. Bowel sounds are normally heard. : Deferred. RECTAL: Deferred. LYMPHATIC: No lymphadenopathy noted in the neck or groin. EXTREMITIES: No edema or cyanosis. No clubbing. Peripheral pulses are palpated in fairly good volume and amplitude MUSCULOSKELETAL: No acute joint deformities or swelling SKIN: There are no significant rashes or ecchymosis NEUROPSYCHIATRIC: The patient is alert and oriented x3. Appears to be in a good mood. No tremors or rigidity noted. Const: COMMON NORMALS: alert Resp: COMMON NORMALS: clear to auscultation bilaterally AUSCULTATION: clear to auscultation bilaterally Neuro: SENSORIUM/ORIENTATION: Yes alert Data : 05/01/20 08:59 05/01/20 08:59 A&P Assessment and plan (1) Atherosclerotic heart disease of [place] coronary artery with other forms of angina pectoris: Patient requires intervention of the RCA and the LAD lesion. We are planning to send his cardiac cath films to Dr. Joshi at the [facility]. Since the patient remained stable, I may discharge him home. Dr. Joshi's office will make arrangements for him to be seen in his office and then decide on further management options. Status: Acute (2) Benign essential hypertension with target blood pressure below 140/90: The blood pressure seems to be getting under control. We will continue on the current medications. Status: Acute (3) Ventricular arrhythmia: Since the arrhythmia is stable, patient may not require any specific int ervention. Advised to continue on the current treatment measures. Status: Acute Additional A&P Information If the patient continues to remain stable, will be discharged home today . For the medication details, please refer to the discharge medications. He will be seen in the office in a week by the nurse practitioner. I may see him in the office in 2 weeks Attestations Medical Necessity Statement*: Discharge home today Coding Level of Care Code Acute Mycologist for [facility] Fwd Exam Expanded Problem Focused Diagnoses Atherosclerotic heart disease of [place] coronary artery with other forms of angina pectoris I25.118 Benign essential hypertension with target blood pressure below 140/90 I10 Ventricular arrhythmia I49.9
[2020-05-01 13:13] VITALS: PULSE 75; O2SAT 96
[2020-05-01 13:50] VITALS: BP 101/62; PULSE 75; RESP 18; TEMP 36.6; O2SAT 96
--- NOTE | 2020-05-02 09:49 | PC.RESP ---
SMOKING CESSATION INFORMATION SENT TO PATIENT.
== END 2020-05-01 14:00 | disposition home or self-care (01) ==
LOC: CSU 15:51
PROVIDERS: Internal Medicine Cardiovascular Disease; Admitting Provider Internal Medicine Cardiovascular Disease; PCP Family Medicine; Visit Provider Internal Medicine Cardiovascular Disease
DX: I25.118 Atherosclerotic heart disease of native coronary artery with other forms of angina pectoris (principal); I10 Essential (primary) hypertension; I49.9 Cardiac arrhythmia, unspecified; Z79.82 Long term (current) use of aspirin; F17.290 Nicotine dependence, other tobacco product, uncomplicated
CPT/HCPCS: 12345; 36415; 80048; 85025; 85347; 85610; 92920; 93452; 93571; C1725; C1769; C1887; C1894; G0378; J0153; J1200; J1644; J2250; J3010; J3246; J3490; J7030; Q9967

== ENCOUNTER → 2020-05-08 10:54 | Outpatient (BNVA) | payer OTHER, SELFPAY | PROVIDERS: PCP Family Medicine; Visit Provider Nurse Practitioner Family | DX: I25.118 Atherosclerotic heart disease of native coronary artery with other forms of angina pectoris (principal) | CPT/HCPCS: 80048 ==

== ENCOUNTER 2020-08-30 11:06 | Emergency (ER) | payer OTHER, MEDICARE, SELFPAY ==
[2020-08-30 11:13] VITALS: BP 124/70; PULSE 71; RESP 18; TEMP 36.2; O2SAT 97; BMI 32.1
[2020-08-30 11:22] VITALS: BP 124/70; PULSE 68; RESP 18; O2SAT 97
--- NOTE | 2020-08-30 11:32 | W.ED.SKABFB ---
HPI - Skin/Abscess/Foreign Bdy General: Chief complaint: Skin/Abscess/Foreign Body Stated complaint: RASH ON BOTH LEGS Time Seen by Provider: 08/30/20 11:20 Source: patient Mode of arrival: ambulatory Limitations: no limitations History of Present Illness: HPI narrative: 80-year-old male patient presents to the emergency department with rash to the bilateral lower extremities. He reports open heart surgery 6 weeks ago, denies chest pain shortness of breath or difficulty breathing. He reports soreness in his chest is steadily improving, he denies fever or chills. He reports received [employer] Covid vaccine 08/22/2020 with rash that started to the right lower extremity 08/27/2020. He reports itching, denies new medications, change of lotions, detergents or other body care products. [facility], was advised to come to the emergency department for evaluation of the rash. He states has not taken anything for the rash, states mowed the yard yesterday and noticed rash spreading to the LLE this morning. 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 MD complaint: rash Onset (ago): day(s) (3-4) Tetanus up to date: yes Location: LLE and RLE Severity: mild Exacerbating factors: none Context: none Associated symptoms: Reports no associated symptoms; Deny chills, fever(s), nausea or vomiting Treatments prior to arrival: Benadryl (cream to the BLE) Review of Systems General: Reports: 10 or more systems reviewed and unremarkable except in HPI and below Const: Denies: fever(s), chills, body aches, fatigue, malaise or diaphoresis Eyes: Denies: blurry vision, eye discomfort or eye redness ENMT: Reports: nasal discharge; Denies: throat pain, dental pain, disequilibrium, nasal congestion, nasal obstruction, epistaxis or post nasal drip Card: Denies: chest pain, palpitations, irregular heart rhythm, swelling of feet/ankles, dyspnea on exertion or orthopnea Resp: Denies: dyspnea, productive cough, non-productive cough, wheezing, pain on inspiration or chest congestion GI: Denies: abdominal pain, nausea, vomiting, heartburn, diarrhea, constipation or pain on defecation : Denies: difficulty urinating, dysuria or urinary urgency Musc: Denies: neck pain, back pain, joint pain, joint warmth or joint stiffness Skin/Breast: Reports: rash and changes in skin color; Denies: pruritus, photosensitivity, skin tenderness, skin swelling or non-healing lesions Neuro: Denies: headache(s), weakness in extremities or behavioral changes Psych: Denies: anxiety or depression Dani/Lymph: Denies: easy bruising PFSH ED PFSH: Medical History Abnormal cardiovascular stress test Atherosclerotic heart disease of [place] coronary artery with other forms of angina pectoris Benign essential hypertension with target blood pressure below 140/90 Erectile dysfunction Gout H/O cardiac arrhythmia Hearing loss History of nonmelanoma skin cancer Hypertension Skin neoplasm Ventricular arrhythmia Surgical History History of hernia surgery Family History Brother CAD (coronary artery disease) Mother Cancer Stroke Father Diabetes Other Hypertension Denies family history of Clotting disorder Dementia Hyperlipidemia Chronic kidney disease (CKD) Suicide Anesthesia complication Bleeding disorder Lung disease Social History Smoking and tobacco status: light tobacco smoker smokeless tobacco Alcohol intake: never Physical Exam Const: COMMON NORMALS: no acute distress, patient oriented x3, healthy appearing and alert GENERAL APPEARANCE: cooperative, comfortable, well kempt, well developed and well hydrated; not anxious, not ill appearing and not frail appearing NUTRITIONAL APPEARANCE: thin ORIENTATION/CONSCIOUSNESS: Yes awake, Yes oriented to person, Yes oriented to place and Yes oriented to time HENMT: COMMON NORMALS: normocephalic, atraumatic, external ears normal, Normal external nose present and moist oral mucous membranes HEAD & SCALP: normal to inspection, normocephalic and atraumatic FACE & SINUS: normal facial exam and face symmetric NOSE: Normal external nose present and No nasal polyps present EXTERNAL EAR: Yes external ears normal MOUTH: Normal oral and palatal mucosa present, lip normal and tongue normal THROAT: posterior oropharynx normal, tonsils normal and uvula midline Eye: COMMON NORMALS: Equal, round and reactive pupils present, EOMs intact bilaterally and conjunctivae normal GENERAL EYE: appearance normal, both eyes and all related structures CONJUNCTIVA: Yes conjunctivae normal PUPIL: Yes Equal, round and reactive pupils present Neck/C-Spine: COMMON NORMALS: full ROM and no lymphadenopathy GENERAL: Yes normal visual inspection and Yes trachea midline CERVICAL SPINE: Yes cervical ROM normal Lymph: LYMPHATIC: no lymphadenopathy noted Chest: COMMONS NORMALS: normal inspection of the chest and normal palpation of entire chest wall CHEST: Yes other (scar - midsternal, no erythema/edema/pain) Resp: COMMON NORMALS: normal respiratory effort, No retractions, No use of accessory muscles and clear to auscultation bilaterally EFFORT & INSPECTION: Yes able to speak in complete sentences, No labored and No audible wheezes AUSCULTATION: clear to auscultation bilaterally and lung sounds not diminished Cardio: COMMON NORMALS: regular rate, regular rhythm, S1 normal heart sound present, S2 normal heart sound present and Peripheral pulses 2+ throughout RATE: regular rate RHYTHM: regular rhythm HEART SOUNDS: S1 normal heart sound present and S2 normal heart sound present PERIPHERAL PULSES: Peripheral pulses 2+ throughout GI: COMMON NORMALS: Normal to inspection, nondistended, normoactive bowel sounds present, Soft to palpation and non-tender INSPECTION: Yes normal to inspection PALPATION: Yes Soft to palpation : COMMON NORMALS: Yes no CVA tenderness BLADDER/KIDNEY EXAM: Yes no CVA tenderness Back/Pelvis: COMMON NORMALS: no CVA tenderness, thoracic and lumbar spine normal to inspection, no thoracic nor lumbar tenderness and thoraco-lumbar ROM normal Extremity: COMMON NORMALS: normal to inspection and capillary refill normal Neuro: COMMON NORMALS: patient oriented x3 and no focal motor deficits SENSORIUM/ORIENTATION: Yes alert, Yes oriented to person, Yes oriented to place and Yes oriented to time Psych: COMMON NORMALS: mental status grossly normal, Normal thought process present, cooperative, normal affect and speech normal APPEARANCE: Yes well kempt ACTIVITY/MOTOR BEHAVIOR: Yes appropriate eye contact SPEECH: Yes normal speech THOUGHT PROCESS: Normal thought process present Skin: COMMON NORMALS: no rashes or lesions noted, no wounds, turgor normal, no petechiae and no mottling GENERAL SKIN EXAM: no rashes or lesions noted, elasticity normal and turgor normal RASHES: rashes noted (to the BLE, includes lower and upper thigh, does not include ankles or feet) stasis Rash location: macular Rash distribution: Yes exposed areas Rash color: Yes hyperpigmented Rash border: Yes smooth and Yes irregular Rash tenderness: Yes nontender and other (Appears a stasis dermatitis to the bilateral lower extremities, nonpetechia) TRAUMA: no lacerations or abrasions HAIR: normal NAILS: normal OTHER: rash is isolated to the BLE, not occuring to the groin, abdomen or torso Course ED course: 80-year-old male patient presents to the emergency department with dermatitis of the bilateral lower extremities caused from medication sun reaction. Prior to onset of rash, he received increased dosing of carvedilol, was outside mowing the yard prior to onset of rash rash is located in sun exposed areas only it is not located on the ankles or the feet. It is not located on the torso groin or face. ESR 18, CBC and chemistry unremarkable. 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 Advised he could use calamine spray or [id number] anti-itch medication to help if itching occurs. Vital Signs: Vital signs: Vital Signs Temperature 97.6 F 08/30/20 12:51 Pulse Rate 63 08/30/20 12:51 Respiratory Rate 18 08/30/20 12:51 Blood Pressure 106/61 08/30/20 12:51 Pulse Oximetry 95 08/30/20 12:51 MDM - Skin/Abscess/Foreign Bdy Lab Data: Labs: Lab Results 08/30/20 08/30/20 08/30/20 Range/Units 11:33 11:33 11:33 WBC 4.3 (4.0-10.0) 10^3/ uL RBC 3.89 L (4.1-5.3) 10^6/u L Hgb 12.6 (11.7-16.6) g/dL Hct 38.4 L (42.0-52.0) % MCV 98.7 H (80-94) fL MCH 32.4 (28.0-34.0) pg MCHC 32.8 (30.0-36.0) g/dL RDW 13.7 (12.1-15.1) % Plt Count 153 (130-400) 10^3/c mm MPV 9.6 (7.4-10.4) fL Neut % (Auto) 50.3 % Lymph % (Auto) 31.2 % [place] % (Auto) 10.1 % Eos % (Auto) 7.3 % Baso % (Auto) 0.9 % Neut # (Auto) 2.14 (1.8-7.7) 10^3/u L Lymph # (Auto) 1.3 (0.8-4.8) 10^3/u L [place] # (Auto) 0.4 (0.2-0.9) 10^3/u L Eos # (Auto) 0.3 (0.0-0.8) 10^3/u L Baso # (Auto) 0.0 (0.0-0.1) 10^3/u L Nucleated RBC % (a uto) 0 % Nucleated RBCs # 0.0 /100WBC ESR 18 H (0-10) mm/hr Sodium 138 (136-145) mmol/L Potassium 4.5 (3.5-5.1) mmol/L Chloride 101 (98-107) mmol/L Carbon Dioxide 26 (22-29) mmol/L Anion Gap 15.5 (5-19) BUN 16 (8-23) mg/dL Creatinine 0.9 (0.7-1.2) mg/dL GFR Calculation Not Reportable Glucose 107 (65-115) mg/dL Calculated Osmolal ity 288 (285-295) mOsm/k g Calcium 8.9 (8.5-10.5) mg/dL Total Bilirubin 0.4 (0.15-1.2) mg/dL AST 15 (0-40) U/L ALT 12 (0-41) U/L Alkaline Phosphata se 64 (40-130) IU/L Total Protein 6.9 (6.6-8.7) g/dL Albumin 4.1 (3.5-5.2) g/dL Globulin 2.8 (1.3-4.6) g/dL Discharge Plan Discharge Patient Disposition: Home Clinical Impression: Dermatitis Adverse drug reaction Qualifiers: Encounter type: initial encounter Qualified Code(s): T50.905A - Adverse effect of unspecified drugs, medicaments and biological substances, initial encounter Condition: Stable Prescriptions: No Action isosorbide mononitrate 30 mg tablet extended release 24 hr 30 mg PO DAILY 30 Days Qty: 30 RF: 5 lisinopril 40 mg tablet 40 mg PO DAILY RF: 0 allopurinol 300 mg tablet 300 mg PO DAILY RF: 0 carvedilol 6.25 mg tablet See Rx Instructions .ROUTE .COMPLEX Qty: 60 RF: 5 clopidogrel 75 mg Tablet 75 mg PO DAILY 30 Days Qty: 30 RF: 5 aspirin 325 mg Tablet,Delayed Release (Dr/Ec) 325 mg PO DAILY 30 Days Qty: 30 RF: 5 Crestor 20 mg tablet 20 mg PO DAILY 30 Days Qty: 30 RF: 5 Discharge Orders: Discharge ED (Routine); Ordered 08/30/20 Ordered By: Amy Velasquez Discharge Diet: Usual diet Discharge Activity: Resume usual activity Patient Instructions: Stasis Dermatitis (ED), Opioid Safety Activity Restrictions/Additional Instructions: Some medications cause skin sensitivity when exposed to the sun. Advised to limit sun exposure due to rash you have sustained from sun exposure. 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
[2020-08-30 11:41] LABS: Basophils % 0.9 %; Eosinophils # 0.3 10^3/uL (0.0-0.8); Eosinophils % 7.3 %; Hematocrit 38.4 % (42.0-52.0); Hemoglobin 12.6 g/dL (11.7-16.6); Lymphocytes # 1.3 10^3/uL (0.8-4.8); Lymphocytes % 31.2 %; Mean Corpuscular HGB Conc 32.8 g/dL (30.0-36.0); Mean Corpuscular Hemoglobin 32.4 pg (28.0-34.0); Mean Corpuscular Volume 98.7 fL (80-94); Mean Platelet Volume 9.6 fL (7.4-10.4); Monocytes # 0.4 10^3/uL (0.2-0.9); Monocytes % 10.1 %; Neutrophils # 2.14 10^3/uL (1.8-7.7); Neutrophils % 50.3 %; Nucleated Red Blood Cells % 0 %; Platelet Count 153 10^3/cmm (130-400); Red Blood Count 3.89 10^6/uL (4.1-5.3); Red Cell Distribution Width 13.7 % (12.1-15.1); White Blood Count 4.3 10^3/uL (4.0-10.0)
[2020-08-30 12:04] LABS: Alanine Aminotransferase 12 U/L (0-41); Albumin Level 4.1 g/dL (3.5-5.2); Alkaline Phosphatase 64 IU/L (40-130); Anion Gap 15.5 (5-19); Aspartate Amino Transferase 15 U/L (0-40); Blood Urea Nitrogen 16 mg/dL (8-23); Calcium 8.9 mg/dL (8.5-10.5); Carbon Dioxide 26 mmol/L (22-29); Chloride 101 mmol/L (98-107); Globulin 2.8 g/dL (1.3-4.6); Glucose 107 mg/dL (65-115); Osmolality Calculated 288 mOsm/kg (285-295); Potassium 4.5 mmol/L (3.5-5.1); Sodium 138 mmol/L (136-145); Total Bilirubin 0.4 mg/dL (0.15-1.2); Total Protein 6.9 g/dL (6.6-8.7)
[2020-08-30 12:40] LABS: Erythrocyte Sedimentation Rate 18 mm/hr (0-10)
[2020-08-30 12:51] VITALS: BP 106/61; PULSE 63; RESP 18; TEMP 36.4; O2SAT 95
== END 2020-08-30 12:54 | disposition home or self-care (01) ==
PROVIDERS: Emergency Provider Nurse Practitioner Family
DX: L30.9 Dermatitis, unspecified (principal); T50.905A Adverse effect of unspecified drugs, medicaments and biological substances, initial encounter; Z79.82 Long term (current) use of aspirin; Z79.02 Long term (current) use of antithrombotics/antiplatelets; I25.10 Atherosclerotic heart disease of native coronary artery without angina pectoris; I10 Essential (primary) hypertension; F17.210 Nicotine dependence, cigarettes, uncomplicated
CPT/HCPCS: 80053; 85025; 85651; 99282

== ENCOUNTER → 2022-02-19 09:43 | Outpatient (BNVA) | payer OTHER, SELFPAY | PROVIDERS: PCP Family Medicine; Visit Provider Internal Medicine Cardiovascular Disease | DX: I25.118 Atherosclerotic heart disease of native coronary artery with other forms of angina pectoris (principal); I10 Essential (primary) hypertension; E78.5 Hyperlipidemia, unspecified; I49.9 Cardiac arrhythmia, unspecified; F17.220 Nicotine dependence, chewing tobacco, uncomplicated | CPT/HCPCS: 99214 ==

== ENCOUNTER → 2022-08-20 10:10 | Outpatient (BNVA) | payer OTHER, SELFPAY | PROVIDERS: PCP Family Medicine; Visit Provider Internal Medicine Cardiovascular Disease | DX: I25.118 Atherosclerotic heart disease of native coronary artery with other forms of angina pectoris (principal); E78.5 Hyperlipidemia, unspecified; I10 Essential (primary) hypertension; K43.9 Ventral hernia without obstruction or gangrene; I49.8 Other specified cardiac arrhythmias; F17.220 Nicotine dependence, chewing tobacco, uncomplicated; Z95.1 Presence of aortocoronary bypass graft; Z79.82 Long term (current) use of aspirin | CPT/HCPCS: 99214 ==

== ENCOUNTER → 2022-12-21 11:15 | Outpatient (BNVA) | payer OTHER, SELFPAY | PROVIDERS: PCP Family Medicine; Visit Provider Nurse Practitioner Family | DX: L57.0 Actinic keratosis (principal); L82.1 Other seborrheic keratosis; L81.4 Other melanin hyperpigmentation; D22.5 Melanocytic nevi of trunk; L85.3 Xerosis cutis; L57.8 Other skin changes due to chronic exposure to nonionizing radiation; Z85.828 Personal history of other malignant neoplasm of skin | CPT/HCPCS: 17004; 99213 ==

== ENCOUNTER → 2023-03-11 11:25 | Outpatient (BNVA) | payer OTHER, SELFPAY | PROVIDERS: PCP Family Medicine; Visit Provider Internal Medicine Cardiovascular Disease | DX: I25.118 Atherosclerotic heart disease of native coronary artery with other forms of angina pectoris (principal); I10 Essential (primary) hypertension; E78.5 Hyperlipidemia, unspecified; K43.9 Ventral hernia without obstruction or gangrene; I49.8 Other specified cardiac arrhythmias; F17.200 Nicotine dependence, unspecified, uncomplicated; Z95.1 Presence of aortocoronary bypass graft | CPT/HCPCS: 99214 ==

== ENCOUNTER → 2023-04-26 11:19 | Outpatient (BNVA) | payer OTHER, SELFPAY | PROVIDERS: PCP Family Medicine; Visit Provider Nurse Practitioner Family | DX: L57.0 Actinic keratosis (principal); L82.1 Other seborrheic keratosis; L82.0 Inflamed seborrheic keratosis; L57.8 Other skin changes due to chronic exposure to nonionizing radiation; L81.4 Other melanin hyperpigmentation | CPT/HCPCS: 17000; 17110; 99213 ==

== ENCOUNTER → 2023-09-30 11:43 | Outpatient (BNVA) | payer OTHER, SELFPAY | PROVIDERS: PCP Family Medicine; Visit Provider Internal Medicine Cardiovascular Disease | DX: R07.9 Chest pain, unspecified (principal); I25.118 Atherosclerotic heart disease of native coronary artery with other forms of angina pectoris; I49.9 Cardiac arrhythmia, unspecified; I10 Essential (primary) hypertension; E78.5 Hyperlipidemia, unspecified; F17.200 Nicotine dependence, unspecified, uncomplicated | CPT/HCPCS: 93005; 99214 ==

== ENCOUNTER → 2023-10-19 09:58 | Outpatient (BNVA) | payer OTHER, SELFPAY | PROVIDERS: PCP Family Medicine; Visit Provider Nurse Practitioner Family | DX: L57.0 Actinic keratosis (principal); L82.0 Inflamed seborrheic keratosis; L81.4 Other melanin hyperpigmentation; L57.8 Other skin changes due to chronic exposure to nonionizing radiation; Z85.828 Personal history of other malignant neoplasm of skin | CPT/HCPCS: 17000; 17110; 99213 ==

== ENCOUNTER → 2024-03-31 10:27 | Outpatient (BNVA) | payer OTHER, SELFPAY | PROVIDERS: PCP Family Medicine; Visit Provider Nurse Practitioner Family | DX: M67.442 Ganglion, left hand (principal); L57.0 Actinic keratosis; L81.4 Other melanin hyperpigmentation; L57.8 Other skin changes due to chronic exposure to nonionizing radiation; D23.5 Other benign neoplasm of skin of trunk; Z85.828 Personal history of other malignant neoplasm of skin | CPT/HCPCS: 17000; 99213 ==

== ENCOUNTER → 2024-09-28 08:59 | Outpatient (BNVA) | payer OTHER, SELFPAY | PROVIDERS: PCP Family Medicine; Visit Provider Nurse Practitioner Family | DX: L81.4 Other melanin hyperpigmentation (principal); M67.442 Ganglion, left hand; L57.8 Other skin changes due to chronic exposure to nonionizing radiation; X32.XXXA Exposure to sunlight, initial encounter; L82.1 Other seborrheic keratosis; Z08 Encounter for follow-up examination after completed treatment for malignant neoplasm; Z85.828 Personal history of other malignant neoplasm of skin; L82.0 Inflamed seborrheic keratosis; Z78.9 Other specified health status; R20.8 Other disturbances of skin sensation; L53.8 Other specified erythematous conditions | CPT/HCPCS: 17000; 17110; 99213 ==

== ENCOUNTER → 2024-10-18 11:42 | Outpatient (BNVA) | payer OTHER, SELFPAY | PROVIDERS: PCP Family Medicine; Visit Provider Internal Medicine Cardiovascular Disease | DX: I25.118 Atherosclerotic heart disease of native coronary artery with other forms of angina pectoris (principal); I49.8 Other specified cardiac arrhythmias; I10 Essential (primary) hypertension; E78.5 Hyperlipidemia, unspecified; Z79.82 Long term (current) use of aspirin; Z95.1 Presence of aortocoronary bypass graft; Z87.891 Personal history of nicotine dependence; R07.9 Chest pain, unspecified | CPT/HCPCS: 93005; 99214 ==

== ENCOUNTER → 2025-03-26 14:40 | Outpatient (BNVA) | payer OTHER, SELFPAY | PROVIDERS: PCP Family Medicine; Visit Provider Nurse Practitioner Family | DX: L91.8 Other hypertrophic disorders of the skin (principal); M67.442 Ganglion, left hand; L57.8 Other skin changes due to chronic exposure to nonionizing radiation; X32.XXXA Exposure to sunlight, initial encounter; L81.4 Other melanin hyperpigmentation; L82.1 Other seborrheic keratosis; Z08 Encounter for follow-up examination after completed treatment for malignant neoplasm; Z85.828 Personal history of other malignant neoplasm of skin; D48.5 Neoplasm of uncertain behavior of skin; L57.0 Actinic keratosis | CPT/HCPCS: 11102; 17000; 99213 ==